=== PATIENT | male | born 1965 | race Caucasian/White ===

== ENCOUNTER 2017-07-06 14:29 | Emergency (ER) | payer OTHER ==
[~2017-07-06] VITALS: Ht 167.6 cm; Wt 122.5 kg
[~2017-07-06 14:29] MED LIST: FLOMAX0.4 MG PO; PANTOPRAZOLE SO40 MG PO; ULTRAM50 MG PO; ZOFRAN ODT4 MG
[2017-07-06 16:00] LABS: KETONES,URINE NEGATIVE (NEGATIVE); LEUKOCYTE ESTERASE ,URINE NEGATIVE (NEGATIVE); NITRITE,URINE NEGATIVE (NEGATIVE); URINE UROBILINOGEN 0.2 mg/dL (0.2 - 1)
[2017-07-06 16:01] LABS: BILIRUBIN,URINE 1+ (NEGATIVE); CLARITY,URINE SL CLOUDY (CLEAR); COLOR,URINE YELLOW (YELLOW); PROTEIN,URINE DIPSTICK TRACE (NEGATIVE)
[2017-07-06 16:19] LABS: BACTERIA,URINE MODERATE /HPF; EPITHELIAL CELLS,URINE RARE /LPF
[2017-07-06] MEDS ORDERED: SODIUM CHLORIDE 0.9% 1000ML 1,000 ML IV SCH (16:45)
[2017-07-06] MEDS ORDERED: FENTANYL CITRATE/PF 100MCG/2 ML INJ IV ONE ×2 (16:45→19:30)
--- NOTE | 2017-07-06 17:41 | Diagnostic Imaging Report ---
PROCEDURE: CT ABDOMEN AND PELVIS WITHOUT CONTRAST TECHNIQUE: The abdomen and pelvis were scanned utilizing a multidetector helical scanner from the diaphragm to the lesser trochanter after the oral administration of water (Gastroview/Readi-Cat 2). No IV contrast was administered per renal stone protocol. Coronal and sagittal multiplanar reformations were obtained. COMPARISON: Patients [facility], CT, CT ABDOMEN/PELVIS WO, 03/13/2017, 7:53. INDICATIONS: RIGHT FLANK PAIN FINDINGS: ABSENCE OF INTRAVENOUS CONTRAST DECREASES SENSITIVITY FOR DETECTION OF FOCAL LESIONS AND VASCULAR PATHOLOGY. LOWER THORAX: Unremarkable. HEPATOBILIARY: Diffuse hepatic steatosis. No focal hepatic lesions. No biliary ductal dilation. Gallbladder is unremarkable. SPLEEN: No splenomegaly. PANCREAS: No focal masses or ductal dilatation. ADRENALS: No adrenal nodules. KIDNEYS/URETERS: 3 mm nonobstructing calculus in the superior to mid aspect of the right kidney (series 3, image 70). Punctate nonobstructing calculus at the right UVJ (series 3, image 155 and sagittal image 58), resulting in minimal hydronephrosis and minimal perinephric stranding. No other renal or ureteral calculi. No contour abnormalities. PELVIC ORGANS/BLADDER: Bladder is decompressed. No focal lesions. No bladder calculi. PERITONEUM / RETROPERITONEUM: No free air or fluid. LYMPH NODES: No lymphadenopathy. VESSELS: Unremarkable. GI TRACT: No bowel dilation or evidence of obstruction. Appendix is well identified and normal in caliber. BONES AND SOFT TISSUES: No acute bony abnormalities. Degenerative disc changes in the lumbosacral spine, worse at L4-L5. Stable small fat containing umbilical hernia. IMPRESSION: 1. punctate nonobstructing calculus at the right UVJ, resulting in minimal hydronephrosis and minimal perinephric stranding. 2. 3 mm nonobstructing calculus in the superior to mid aspect of the right kidney. 3. No other renal or ureteral calculi. No left hydronephrosis or obstruction. 4. Diffuse hepatic steatosis. Mayur Horne M.D. Dictated by: Mayur Horne M.D. on 07/06/2017 at 17:50 Electronically approved by: Mayur Horne M.D. on 07/06/2017 at 17:50
[2017-07-06 18:15] LABS: BASOPHILS # (AUTO) 0.1 (0.0-0.1); BASOPHILS % 0.3 % (0.0-1.0); EOSINOPHILS # (AUTO) 0.1 (0.0-0.4); EOSINOPHILS % 0.5 % (0.0-6.0); HEMATOCRIT 46.4 % (38.2-49.6); HEMOGLOBIN 15.4 g/dL (14.0-18.0); LYMPHOCYTES # (AUTO) 1.9 (1.0-3.2); MEAN CORPUSCULAR HEMOGLOBIN 30.9 pg (28-32); MEAN CORPUSCULAR HGB CONC 33.2 g/dL (31-35); MEAN CORPUSCULAR VOLUME 93.2 fL (81-99); MONOCYTES # (AUTO) 1.2 (0.2-0.8); MONOCYTES % 6.4 % (4.4-11.3); NEUTROPHILS # (AUTO) 15.5 (2.1-6.9); NEUTROPHILS % 82.3 % (38.7-80.0); PLATELET COUNT 348 x10e3/uL (140-360); RED BLOOD COUNT 4.98 x10e6/uL (4.3-5.7); RED CELL DISTRIBUTION WIDTH 13.4 % (11.7-14.4)
[2017-07-06 18:33] LABS: ALBUMIN 3.6 g/dL (3.5-5.0); ALBUMIN/GLOBULIN RATIO 0.9 (0.8-2.0); ANION GAP 13.4 mmol/L (8-16); CALCIUM 9.9 mg/dL (8.4-10.2); CREATININE, SERUM 1.58 mg/dL (0.72-1.25); POTASSIUM 4.4 mmol/L (3.5-5.1)
[2017-07-06] MEDS ORDERED: CEFTRIAXONE SOD 1 GM VIAL IM ONE (19:30)
[2017-07-06 20:28] VITALS: BP 165/101
== END 2017-07-06 20:34 | disposition home or self-care (01) ==
LOC: ER 14:29
DX: R10.9 Unspecified abdominal pain (principal); R31.9 Hematuria, unspecified; N39.0 Urinary tract infection, site not specified; N20.0 Calculus of kidney; N20.1 Calculus of ureter
CPT/HCPCS: 36415; 74176; 80053; 81001; 85025; 99284; J0696; J7030

== ENCOUNTER 2017-07-30 05:55 | Emergency (ER) | payer OTHER ==
[~2017-07-30] VITALS: Ht 167.6 cm; Wt 122.5 kg
[2017-07-30] MEDS ORDERED: ASPIRIN 81 MG CHEW TAB PO ONE (06:00)
[2017-07-30] MEDS ORDERED: ENOXAPARIN SODIUM INJ 100 MG/ML SYR SC STA (06:02)
[2017-07-30] MEDS ORDERED: DILTIAZEM HCL IV 5MG/ML 25 ML VIAL ONE (06:10)
[2017-07-30] MEDS: DILTIAZEM HCL 100 ML IV PRN ×3 (06:12→09:00)
[2017-07-30] MEDS ORDERED: SODIUM CHLORIDE 0.9% 1000ML 1,000 ML IV ONE (06:15)
[2017-07-30] MEDS ORDERED: DILTIAZEM HCL 5 MG/ML 5 ML VIAL IV ONE (06:15)
[2017-07-30] MEDS ORDERED: ENOXAPARIN SODIUM INJ 100 MG/ML SYR SC SCH ×2 (06:15→18:15)
[2017-07-30 06:20] LABS: BASOPHILS # (AUTO) 0.1 (0.0-0.1); BASOPHILS % 0.4 % (0.0-1.0); EOSINOPHILS # (AUTO) 0.2 (0.0-0.4); EOSINOPHILS % 1.2 % (0.0-6.0); HEMATOCRIT 48.3 % (38.2-49.6); HEMOGLOBIN 15.5 g/dL (14.0-18.0); LYMPHOCYTES # (AUTO) 5.4 (1.0-3.2); LYMPHOCYTES % 36.2 % (18.0-39.1); MEAN CORPUSCULAR HEMOGLOBIN 30.9 pg (28-32); MEAN CORPUSCULAR HGB CONC 32.1 g/dL (31-35); MEAN CORPUSCULAR VOLUME 96.2 fL (81-99); MONOCYTES # (AUTO) 1.1 (0.2-0.8); NEUTROPHILS # (AUTO) 8.2 (2.1-6.9); NEUTROPHILS % 54.8 % (38.7-80.0); PLATELET COUNT 300 x10e3/uL (140-360); RED BLOOD COUNT 5.02 x10e6/uL (4.3-5.7); RED CELL DISTRIBUTION WIDTH 13.7 % (11.7-14.4)
[2017-07-30] MEDS ORDERED: IBUPROFEN 600 MG TAB PO STA (06:29)
[2017-07-30 06:36] LABS: ALBUMIN 3.7 g/dL (3.5-5.0); ANION GAP 15.6 mmol/L (8-16); CALCIUM 9.4 mg/dL (8.4-10.2); CREATININE, SERUM 1.48 mg/dL (0.72-1.25); POTASSIUM 3.6 mmol/L (3.5-5.1)
[2017-07-30 06:37] LABS: INR 0.91; PARTIAL THROMBOPLASTIN TIME 26.1 seconds (23.8-35.5); PROTHROMBIN TIME 12.7 seconds (11.9-14.5)
[2017-07-30 06:42] LABS: CREATINE KINASE MB 1.5 ng/mL (0.00-5.00); TROPONIN I 0.003 ng/mL (0-0.300)
--- NOTE | 2017-07-30 06:53 | Diagnostic Imaging Report ---
EXAM: CHEST SINGLE (PORTABLE), AP 1 view DATE: 07/30/2017 5:59 AM Time stamp on exam: 0627 hours INDICATION: Shortness of breath COMPARISON: AP view of the chest February 06, 2017 FINDINGS: LINES/TUBES: None LUNGS: No consolidations or edema. PLEURA: No effusions or pneumothorax. HEART AND MEDIASTINUM: Normal size and contour. BONES AND SOFT TISSUES: No acute findings. IMPRESSION: No acute thoracic abnormality. Signed by: Dr. Kiera Ramirez M.D. on 07/30/2017 6:49 AM
--- NOTE | 2017-07-30 08:54 | Diagnostic Imaging Report ---
EXAM: CTA Chest WITH contrast / Pulmonary Embolus Study INDICATION: COMPARISON: None. TECHNIQUE: Angiogram of the chest was obtained using a multidetector helical scanner after administration of IV contrast. Coronal and sagittal reformations were obtained. Reformatted axial MIP images were obtained and reviewed. Pulmonary embolus protocol. IV CONTRAST: 100 mL Isovue-370 COMPLICATIONS: None RADIATION DOSE: Total DLP: 567 mGy*cm Estimated effective dose: (DLP x 0.015 x size factor) mSv CTDIvol has been reviewed. It is below the limits set by the Radiation Protocol Committee (RPC). FINDINGS: Lines and Tubes: None. Lower Neck: Within limitations of spray artifact, thyroid grossly unremarkable. Heart and Great Vessels: The aorta and main pulmonary artery measure 30 and 27 mm. respectively. The cardiothoracic radio measures 13/28. RV/LV ratio over 1 (51/34). Extensive pulmonary emboli in the bilateral upper and lobe pulmonary arteries beginning at the bifurcation of the right and main pulmonary arteries involving lobar, segmental, and subsegmental pulmonary arteries. Clot burden is large. Lymph Nodes: No suspicious adenopathy. Lungs: Atelectasis present in the lung bases. No pneumothorax or pleural effusion. No focal consolidation identified. Trachea and central bronchi are unremarkable. Upper abdomen: Decreased attenuation the liver suggesting steatosis. Bones and Soft Tissues: No acute findings. IMPRESSION: 1. Bilateral upper and lower lobe pulmonary emboli involving distal main pulmonary arteries, lobar, segmental, and subsegmental pulmonary arteries in all five lobes. Clot burden is large with evidence of right heart strain. Case discussed with Dr. Drake at 8:45am. Signed by: Dr. James Fairbanks MD on 07/30/2017 8:50 AM
[2017-07-30] MEDS ORDERED: HEPARIN 25,000U/0.45% NS 250ML 1,500 UNIT in SODIUM CHLORIDE 0.9% 250ML 0 ML IV SCH (09:30)
[2017-07-30] MEDS ORDERED: IOPAMIDOL 370 MG/ML 200 ML INFUS..BTL INJ ONE (13:27)
[2017-07-30] MEDS ORDERED: SODIUM CHLORIDE 0.9% 50ML 50 ML ONE (13:27)
[2017-07-30 13:49] VITALS: BP 112/70
[2017-07-30] MEDS ORDERED: SODIUM CHLORIDE 0.9% 1000ML 1,000 ML IV SCH (14:00)
[2017-07-30 14:11] LABS: CHOL/HDL RATIO 3.2 (3.9-4.7)
--- NOTE | 2017-07-30 14:40 | Consultation ---
DATE OF CONSULTATION: July 30, 2017 PULMONARY CONSULTATION This is a patient of Dr. Palmer Sahu and Dr. Monique, admitted with chest pain on and off, lasting 30 seconds, and soreness intermittently of the left leg. This morning, he collapsed going to the bathroom. His legs gave way. He did not lose consciousness. HE IS ALLERGIC TO PEANUTS AND CHOCOLATE. He takes no regular medications. He has a history of pulmonary embolus in the past when he was at [facility] several years ago for pneumonia. He has a history of renal colic in the past. He has had tendon repair and back surgery at L4-5 twice. ACL repair, left. 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 He has a history of severe obstructive sleep apnea but is awaiting his machine. FAMILY HISTORY: He is adopted. PHYSICAL EXAMINATION GENERAL: Well-developed, burly, white male in no acute distress, on nonrebreather mask. VITALS: Pulse 154 on Cardizem, respirations 28, blood pressure 113/99. The O2 saturation is 100%. NECK: Bull neck. LUNGS: Diminished breath sounds, a few rhonchi. HEART: Irregular rhythm. ABDOMEN: Obese. EXTREMITIES: Swelling of the left lower extremity. IMPRESSION: Submassive pulmonary embolus. No evidence of shock. If shock develops, he would be a candidate for tPA thrombolytic therapy. At this point, would continue Lovenox or heparin but not both. He may require long-term anticoagulation. Hematologic opinion in view of the recurrence of his pulmonary emboli. Echocardiogram is requested. Thank you for this kind referral. Job#: [id number]
== END 2017-07-30 14:23 | disposition other institution (70) ==
LOC: ER 05:55
DX: I26.99 Other pulmonary embolism without acute cor pulmonale (principal); R07.89 Other chest pain; R06.02 Shortness of breath; Z86.718 Personal history of other venous thrombosis and embolism; G47.30 Sleep apnea, unspecified; R00.0 Tachycardia, unspecified; Z91.010 Allergy to peanuts; Z91.018 Allergy to other foods; Z86.711 Personal history of pulmonary embolism
CPT/HCPCS: 36415; 71010; 71260; 80053; 80061; 82550; 82553; 83880; 84484; 85025; 85379; 85610; 85730; 93005; 96360; 96365; 99285; J1650; J7030; Q9967

== ENCOUNTER 2017-08-04 18:54 | Observation (INO) | payer OTHER ==
[~2017-08-04] VITALS: Ht 167.6 cm; Wt 111.6 kg
[2017-08-04] MEDS ORDERED: ASPIRIN 81 MG CHEW TAB PO ONE (19:30)
--- NOTE | 2017-08-04 19:49 | Diagnostic Imaging Report ---
Portable chest x-ray CPT code 17004 INDICATION: Chest tightness and pain; recent diagnosis of pulmonary emboli COMPARISON: CTA chest and chest x-ray 07/30/2017 FINDINGS: Frontal view of the chest obtained at 1925 hours. The image is mildly motion degraded. The cardiac silhouette is stable in morphology. The pulmonary vascular marking are normal. The lungs demonstrate increasing infrahilar airspace opacity in the right middle lobe. The left lung is clear. The costophrenic angles are sharp. There is no pneumothorax. The osseous structures are intact and normal in morphology. IMPRESSION: New right infrahilar airspace opacity could represent developing pulmonary infarct given the large burden of emboli on CTA. The differential includes atelectasis and pneumonia. Recommend correlation with PA and lateral chest x-ray when clinically feasible. Signed by: Dr. Jaki Day MD on 08/04/2017 7:45 PM
[2017-08-04 20:02] LABS: BASOPHILS # (AUTO) 0.1 (0.0-0.1); BASOPHILS % 0.4 % (0.0-1.0); EOSINOPHILS # (AUTO) 0.2 (0.0-0.4); EOSINOPHILS % 1.8 % (0.0-6.0); HEMATOCRIT 46.7 % (38.2-49.6); HEMOGLOBIN 15.4 g/dL (14.0-18.0); LYMPHOCYTES # (AUTO) 2.2 (1.0-3.2); LYMPHOCYTES % 19.4 % (18.0-39.1); MEAN CORPUSCULAR HEMOGLOBIN 30.7 pg (28-32); MONOCYTES # (AUTO) 1.1 (0.2-0.8); MONOCYTES % 9.6 % (4.4-11.3); NEUTROPHILS # (AUTO) 7.9 (2.1-6.9); NEUTROPHILS % 68.4 % (38.7-80.0); PLATELET COUNT 260 x10e3/uL (140-360); RED BLOOD COUNT 5.02 x10e6/uL (4.3-5.7); RED CELL DISTRIBUTION WIDTH 13.6 % (11.7-14.4)
[2017-08-04 20:06] LABS: BILIRUBIN,URINE NEGATIVE (NEGATIVE); CLARITY,URINE CLEAR (CLEAR); COLOR,URINE YELLOW (YELLOW); KETONES,URINE NEGATIVE (NEGATIVE); LEUKOCYTE ESTERASE ,URINE NEGATIVE (NEGATIVE); NITRITE,URINE NEGATIVE (NEGATIVE); PROTEIN,URINE DIPSTICK NEGATIVE (NEGATIVE); URINE UROBILINOGEN 0.2 mg/dL (0.2 - 1)
[2017-08-04 20:08] LABS: INR 1.03
[2017-08-04 20:09] LABS: PARTIAL THROMBOPLASTIN TIME 30.1 seconds (23.8-35.5)
[2017-08-04 20:14] LABS: EPITHELIAL CELLS,URINE RARE /LPF; MUCUS,URINE FEW (RARE); RBC,URINE 0-5 /HPF (0-5); WBC,URINE (MAN) 0-5 /HPF (0-5)
[2017-08-04 20:21] LABS: ALBUMIN 3.7 g/dL (3.5-5.0); ALBUMIN/GLOBULIN RATIO 0.7 (0.8-2.0); ANION GAP 15.8 mmol/L (8-16); CALCIUM 9.9 mg/dL (8.4-10.2); CREATININE, SERUM 1.4 mg/dL (0.72-1.25); POTASSIUM 5.8 mmol/L (3.5-5.1)
[2017-08-04 20:29] LABS: CREATINE KINASE MB 3.6 ng/mL (0.00-5.00)
--- NOTE | 2017-08-04 21:19 | Diagnostic Imaging Report ---
EXAMINATION: Head CT without contrast. HISTORY:Syncope, dizziness. COMPARISON:CT brain from 05/10/2016. TECHNIQUE: Multidetector axial images were obtained from the foramen magnum to the vertex without contrast. The images were reconstructed using brain and bone algorithms. Thin section brain images were reformatted into coronal and sagittal planes. Intravenous contrast: None IMAGE QUALITY: Acceptable. FINDINGS: Skull/scalp: Unchanged nonspecific focal right occipital thickened soft tissue may represent scar. No acute abnormality. Parenchyma: No abnormal density. No acute hemorrhage, mass or acute major vascular territorial infarct. Arteries: No density suggestive of thrombosis. Dural sinuses: No abnormal density suggestive of thrombosis. Ventricles: No hydrocephalus or displacement. Extra-axial spaces: No abnormal density. Brain volume: Normal for age. Craniocervical junction: No mass, Chiari malformation, or basilar invagination. Sella: No mass. Paranasal/mastoid sinuses: Imaged portions unremarkable. IMPRESSION: No intracranial abnormality. Signed by: Dr. Jennifer Gracia M.D. on 08/04/2017 9:16 PM
--- NOTE | 2017-08-04 21:52 | Diagnostic Imaging Report ---
EXAMINATION: CHEST 2 VIEWS INDICATION: Chest pain, history of PE COMPARISON: 08/04/2017 FINDINGS: TUBES and LINES: None. LUNGS: Lungs are well inflated. Lungs are clear. There is no evidence of pneumonia or pulmonary edema. PLEURA: No pleural effusion or pneumothorax. HEART AND MEDIASTINUM: The cardiomediastinal silhouette is unremarkable. BONES AND SOFT TISSUES: No acute osseous lesion. Soft tissues are unremarkable. UPPER ABDOMEN: No free air under the diaphragm. IMPRESSION: No acute thoracic abnormality. Signed by: Dr. Enio Mo M.D. on 08/04/2017 9:48 PM
[2017-08-04 22:29] LABS: ALANINE AMINOTRANSFERASE 66 IU/L (0-55); ALBUMIN 3.6 g/dL (3.5-5.0); ALBUMIN/GLOBULIN RATIO 0.9 (0.8-2.0); ALKALINE PHOSPHATASE 83 IU/L (40-150); ANION GAP 14.9 mmol/L (8-16); BLOOD UREA NITROGEN 24 mg/dL (7-26); BUN/CREATININE RATIO 17 (6-25); CALCIUM 9.9 mg/dL (8.4-10.2); CARBON DIOXIDE 23 mmol/L (22-29); CHLORIDE 105 mmol/L (98-107); CREATININE, SERUM 1.43 mg/dL (0.72-1.25); EST GLOMERULAR FILTRATION RATE 52 ML/MIN (60-); GLUCOSE 119 mg/dL (74-118); POTASSIUM 3.9 mmol/L (3.5-5.1); SODIUM 139 mmol/L (136-145)
[2017-08-04] MEDS ORDERED: ONDANSETRON HCL INJ 2 MG/ML VIAL IV PRN (23:30)
[2017-08-04] MEDS ORDERED: ELIQUIS PO (23:59)
[2017-08-05] VITALS (9 sets, daily range): BP systolic 116–136; BP diastolic 60–81
[2017-08-05] MEDS: FAMOTIDINE 20 MG/2 ML VIAL IV SCH ×3 (03:55→20:19)
[2017-08-05 03:56] LABS: BASOPHILS % 0.3 % (0.0-1.0); EOSINOPHILS # (AUTO) 0.2 (0.0-0.4); EOSINOPHILS % 1.6 % (0.0-6.0); HEMATOCRIT 43.8 % (38.2-49.6); HEMOGLOBIN 14.4 g/dL (14.0-18.0); LYMPHOCYTES # (AUTO) 2.3 (1.0-3.2); LYMPHOCYTES % 19.2 % (18.0-39.1); MEAN CORPUSCULAR HEMOGLOBIN 30.7 pg (28-32); MEAN CORPUSCULAR HGB CONC 32.9 g/dL (31-35); MEAN CORPUSCULAR VOLUME 93.4 fL (81-99); MONOCYTES # (AUTO) 0.8 (0.2-0.8); NEUTROPHILS # (AUTO) 8.3 (2.1-6.9); NEUTROPHILS % 71.4 % (38.7-80.0); PLATELET COUNT 277 x10e3/uL (140-360); RED BLOOD COUNT 4.69 x10e6/uL (4.3-5.7); RED CELL DISTRIBUTION WIDTH 13.5 % (11.7-14.4)
[2017-08-05 04:16] LABS: ALBUMIN 3.4 g/dL (3.5-5.0); ALBUMIN/GLOBULIN RATIO 0.9 (0.8-2.0); ANION GAP 13.9 mmol/L (8-16); CALCIUM 9.7 mg/dL (8.4-10.2); CHOL/HDL RATIO 4.2 (3.9-4.7); CREATININE, SERUM 1.41 mg/dL (0.72-1.25); POTASSIUM 3.9 mmol/L (3.5-5.1)
[2017-08-05 04:23] LABS: CREATINE KINASE MB 2.8 ng/mL (0.00-5.00)
[2017-08-05] MEDS: APIXABAN 5 MG TABLET PO SCH ×2 (09:00→17:30)
[2017-08-05 15:53] LABS: CREATINE KINASE MB 4.6 ng/mL (0.00-5.00)
[2017-08-06] VITALS: BP 115/57
[2017-08-06 01:14] VITALS: BP 119/81
[2017-08-06 04:00] VITALS: BP 120/61
[2017-08-06 08:16] VITALS: BP 95/50
[2017-08-06] MEDS: APIXABAN 5 MG TABLET PO SCH (08:23)
[2017-08-06] MEDS: FAMOTIDINE 20 MG/2 ML VIAL IV SCH (08:23)
[2017-08-06 09:36] VITALS: BP 95/50
== END 2017-08-06 10:32 | disposition home or self-care (01) ==
LOC: ER 18:54 → ERHOLD 23:33 → MED/SURG 08-05 00:51
PROVIDERS: ADMIT Internal Medicine; ATTEND Internal Medicine
DX: R07.89 Other chest pain (principal); I26.99 Other pulmonary embolism without acute cor pulmonale; G47.33 Obstructive sleep apnea (adult) (pediatric); I34.0 Nonrheumatic mitral (valve) insufficiency; I07.1 Rheumatic tricuspid insufficiency; N18.3 Chronic kidney disease, stage 3 (moderate); Z79.02 Long term (current) use of antithrombotics/antiplatelets
CPT/HCPCS: 36415 ×2; 70450; 71045; 71046; 80053 ×2; 80061; 81001; 82550 ×2; 82553 ×2; 83880; 84484 ×2; 85025 ×2; 85610; 85730; 87086; 93005; 93306 ×2; 99284; G0378 ×3

== ENCOUNTER → 2017-09-21 | Outpatient (CLI) | payer OTHER ==
[~2017-09-21] MED LIST changes: +ELIQUIS PO
--- NOTE | 2017-09-21 19:05 | Diagnostic Imaging Report ---
Ventilation/perfusion lung scan Clinical Information: History of pulmonary embolism 2 months ago with heavy clot burden Comparison: Chest radiograph 08/04/2017; CT chest PE protocol 07/30/2017 Discussion: Xenon-133 gas 9 mCi was administered via inhalation. Dynamic images of the lungs in the posterior projection were obtained through single breath, equilibrium, and washout phases. Distribution of tracer activity appears physiologic throughout the lungs.. There are no segmental ventilatory defects. Washout of tracer is mildly delayed with no evidence of air trapping. Perfusion images of the lungs were obtained in multiple projections following intravenous administration of approximately 6.6 mCi of Tc-99m MAA. Distribution of tracer appears physiologic throughout the lungs. The contours of the lungs are well demarcated. There are no segmental perfusion defects of any size. The cardiomediastinal silhouette is unremarkable. Impression: 1. Scan findings represent a VERY LOW probability for acute pulmonary embolic disease based on the PIOPED II criteria. 2. No pulmonary infarcts related to prior PE in 07/2017. Signed by: Dr. Susie Bedolla M.D. on 09/21/2017 7:02 PM
== END ==
LOC: NM 13:23
PROVIDERS: ATTEND Internal Medicine Pulmonary Disease
DX: I26.99 Other pulmonary embolism without acute cor pulmonale (principal); G47.33 Obstructive sleep apnea (adult) (pediatric)
CPT/HCPCS: 78582; A9540; A9558

== ENCOUNTER 2017-10-05 18:52 | Emergency (ER) | payer OTHER ==
[~2017-10-05] VITALS: Ht 167.6 cm; Wt 111.6 kg
--- OUTSIDE RECORDS SUMMARY | 2017-10-05 18:55 | XMS REPORT ---
Author Author [facility] Address Unknown Phone Unavailable Care Team Providers Care Substation Superintendent Name Role Phone JOCELYNE DIXON Unavailable Unavailable ROXIE GAO Unavailable Unavailable ENOCH DRAKE Unavailable Unavailable YUKO DEL ANGEL Unavailable Unavailable Problems This patient has no known problems. Allergies, Adverse Reactions, Alerts This patient has no known allergies or adverse reactions. Medications This patient has no known medications. Results Test Description Test Time Test Comments Text Results Atomic Results Result Comments VQ LUNG SCAN VENT PERFUSION [place] [address] Patient Name: ALANNA LAKHANI MR #: [id number] : 1965 Age/Sex: 52/M Req #: [id number] Adm Physician: Ordered by: JOCELYNE DIXON MD Report #: [id number] Location: MD Room/Bed: Procedure: [id number] NM/VQ LUNG SCAN VENT PERFUSION Exam Date: Exam Time: REPORT STATUS: Signed Ventilation/ perfusion lung scan Clinical Information: History of pulmonary embolism 2 months ago with heavy clot burden Comparison: Chest radiograph 08/04/2017 ; CT chest PE protocol 07/30/2017 Discussion: Xenon-133 gas 9 mCi was administered via inhalation. Dynamic images of the lungs in the posterior projection were obtained through single breath, equilibrium, and washout phases. Distribution of tracer activity appears physiologic throughout the lungs.. There are no segmental ventilatory defects. Washout of tracer is mildly delayed with no evidence of air trapping. Perfusion images of the lungs were obtained in multiple projections following intravenous administration of approximately 6.6 mCi of Tc-99m MAA. Distribution of tracer appears physiologic throughout the lungs. The contours of the lungs are well demarcated. There are no segmental perfusion defects of any size. The cardiomediastinal silhouette is unremarkable. Impression: 1. Scan findings represent a VERY LOW probability for acute pulmonary embolic disease based on the PIOPED II criteria. 2. No pulmonary infarcts related to prior PE in 07/2017. Signed by: Dr. Jeanette Bedolla M.D. on 09/21/2017 7:02 PM Dictated By: JEANETTE BEDOLLA MD 01 COPY TO: JOCELYNE DIXON MD CHEST 2 VIEWS [place] [address] Patient Name: ALANNA LAKHANI MR #: [id number] : 1965 Age/Sex: 52/M Req #: [id number] Adm Physician: Ordered by: ROXIE GAO MD Report #: [id number] Location: ER Room/Bed: Procedure: [id number] DX/CHEST 2 VIEWS Exam Date: 08/04/17 Exam Time: 2039 REPORT STATUS: Signed EXAMINATION: CHEST 2 VIEWS INDICATION: Chest pain, history of PE COMPARISON: 08/04/2017 FINDINGS: TUBES and LINES: None. LUNGS: Lungs are well inflated. Lungs are clear. There is no evidence of pneumonia or pulmonary edema. PLEURA: No pleural effusion or pneumothorax. HEART AND MEDIASTINUM: The cardiomediastinal silhouette is unremarkable. BONES AND SOFT TISSUES: No acute osseous lesion. Soft tissues are unremarkable. UPPER ABDOMEN: No free air under the diaphragm. IMPRESSION: No acute thoracic abnormality. Signed by: Dr. Enio Mo M.D. on 2017 9:48 PM Dictated By: ENIO MEDINA MD 47 Transcribed By: ALEYDA on 2147 COPY TO: ROXIE GAO MD CT BRAIN WO [place] [address] Patient Name: ALANNA LAKHANI MR #: [id number] : 1965 Age/Sex: 52/M Req #: [id number] Adm Physician: Ordered by: ROXIE GAO MD Report #: [id number] Location: ER Room/Bed: Procedure: [id number] CT/CT BRAIN WO Exam Date: 08/04/17 Exam Time: 2044 REPORT STATUS: Signed EXAMINATION: Head CT without contrast. HISTORY:Syncope, dizziness. COMPARISON:CT brain from 05/10/2016. TECHNIQUE: Multidetector axial images were obtained from the foramen magnum to the vertex without contrast. The images were reconstructed using brain and bone algorithms. Thin section brain images were reformatted into coronal and sagittal planes. Intravenous contrast: None IMAGE QUALITY: Acceptable. FINDINGS: Skull/scalp: Unchanged nonspecific focal right occipital thickened soft tissue may represent scar. No acute abnormality. Parenchyma: No abnormal density. No acute hemorrhage, mass or acute major vascular territorial infarct. Arteries: No density suggestive of thrombosis. Dural sinuses: No abnormal density suggestive of thrombosis. Ventricles: No hydrocephalus or displacement. Extra- axial spaces: No abnormal density. Brain volume: Normal for age. Craniocervical junction: No mass, Chiari malformation, or basilar invagination. Sella: No mass. Paranasal/mastoid sinuses: Imaged portions unremarkable. IMPRESSION: No intracranial abnormality. Signed by: Dr. Jennifer Gracia M.D. on 08/04/2017 9:16 PM Dictated By: JENNIFER GRACIA MD 15 Transcribed By: ALEYDA on 08/04/172115 COPY TO: ROXIE GAO MD CHEST SINGLE (NOT PORTABLE) [place] [address] Patient Name: ALANNA LAKHANI MR #: [id number] : 1965 Age/Sex: 52/M Req #: [id number] Adm Physician: Ordered by: ROXIE GAO MD Report #: [id number] Location: ER Room/Bed: Procedure: [id number] DX/CHEST SINGLE (NOT PORTABLE) Exam Date: 08/04/17 Exam Time: 1919 REPORT STATUS: Signed Portable chest x-ray CPT code 43253 INDICATION: Chest tightness and pain; recent diagnosis of pulmonary emboli COMPARISON: CTA chest and chest x-ray 07/30/2017 FINDINGS: Frontal view of the chest obtained at 1925 hours. The image is mildly motion degraded. The cardiac silhouette is stable in morphology. The pulmonary vascular marking are normal. The lungs demonstrate increasing infrahilar airspace opacity in the right middle lobe. The left lung is clear. The costophrenic angles are sharp. There is no pneumothorax. The osseous structures are intact and normal in morphology. IMPRESSION: New right infrahilar airspace opacity could represent developing pulmonary infarct given the large burden of emboli on CTA. The differential includes atelectasis and pneumonia. Recommend correlation with PA and lateral chest x-ray when clinically feasible. Signed by: Dr. Eliecer Metz MD on 08/04/2017 7:45 PM Dictated By: ELIECER METZ MD 44 COPY TO: ROXIE GAO MD CT CHEST W [place] [address] Patient Name: ALANNA LAKHANI MR #: [id number] : 1965 Age/Sex: 52/M Req #: [id number] Adm Physician: Ordered by: JENA YOO MD Report #: [id number] Location: ER Room/Bed: Procedure: [id number] CT/CT CHEST W Exam Date: 07/30/17 Exam Time: 0815 REPORT STATUS: Signed EXAM: CTA Chest WITH contrast / Pulmonary Embolus Study INDICATION: COMPARISON: None. TECHNIQUE: Angiogram of the chest was obtained using a multidetector helical scanner after administration of IV contrast. Coronal and sagittal reformations were obtained. Reformatted axial MIP images were obtained and reviewed. Pulmonary embolus protocol. IV CONTRAST: 100 mL Isovue-370 COMPLICATIONS: None RADIATION DOSE: Total DLP: 567 mGy*cm Estimated effective dose: (DLP x 0.015 x size factor) mSv CTDIvol has been reviewed. It is below the limits set by the Radiation Protocol Committee (RPC). FINDINGS: Lines and Tubes: None. Lower Neck: Within limitations of spray artifact, thyroid grossly unremarkable. Heart and Great Vessels: The aorta and main pulmonary artery measure 30 and 27 mm. respectively. The cardiothoracic radio measures 13/28. RV/LV ratio over 1 ( 51/34). Extensive pulmonary emboli in the bilateral upper and lobe pulmonary arteries beginning at the bifurcation of the right and main pulmonary arteries involving lobar, segmental, and subsegmental pulmonary arteries. Clot burden is large. Lymph Nodes: No suspicious adenopathy. Lungs: Atelectasis present in the lung bases. No pneumothorax or pleural effusion. No focal consolidation identified. Trachea and central bronchi are unremarkable. Upper abdomen: Decreased attenuation the liver suggesting steatosis. Bones and Soft Tissues: No acute findings. IMPRESSION: 1. Bilateral upper and lower lobe pulmonary emboli involving distal main pulmonary arteries, lobar, segmental, and subsegmental pulmonary arteries in all five lobes. Clot burden is large with evidence of right heart strain. Case discussed with Dr. Drake at 8:45am. Signed by: Dr. Belkis Fairbanks MD on 8:50 AM Dictated By: BELKIS FAIRBANKS MD 0850 Transcribed By: ALEYDA on 07/30/17 0850 COPY TO: JENA YOO MD CHEST SINGLE (PORTABLE) [place] [address] Patient Name: ALANNA LAKHANI MR #: [id number] : 1965 Age/Sex: 52/M Req #: [id number] Adm Physician: Ordered by: JENA YOO MD Report #: [id number] Location: ER Room/Bed: ___ Procedure: [id number] DX/CHEST SINGLE (PORTABLE) Exam Date: 07/30/17 Exam Time: 0610 REPORT STATUS: Signed EXAM: CHEST SINGLE (PORTABLE), AP 1 view DATE: 07/30/2017 5:59 AM Time stamp on exam : 0627 hours INDICATION: Shortness of breath COMPARISON: AP view of the chest February 06, 2017 FINDINGS: LINES/TUBES: None LUNGS: No consolidations or edema. PLEURA: No effusions or pneumothorax. HEART AND MEDIASTINUM: Normal size and contour. BONES AND SOFT TISSUES: No acute findings. IMPRESSION: No acute thoracic abnormality. Signed by: Dr. Camilo Ramirez M.D. on 07/30/2017 6:49 AM Dictated By: CAMILO RAMIREZ MD 8 Transcribed By: ALEYDA on 07/30/17648 COPY TO: JENA YOO MD CT ABDOMEN/PELVIS WO [place] [address] Patient Name: ALANNA LAKHANI MR #: [id number] : 1965 Age/Sex: 52/M Req #: [id number] Adm Physician: Ordered by: DOROTA BYRD WHEEL CUTTER Report #: [id number] Location: ER Room/Bed: Procedure: [id number] CT/CT ABDOMEN/PELVIS WO Exam Date: 07/06/17 Exam Time: 1650 REPORT STATUS: Signed PROCEDURE: CT ABDOMEN AND PELVIS WITHOUT CONTRAST TECHNIQUE: The abdomen and pelvis were scanned utilizing a multidetector helical scanner from the diaphragm to the lesser trochanter after the oral administration of water (Gastroview/Readi-Cat 2). No IV contrast was administered per renal stone protocol. Coronal and sagittal multiplanar reformations were obtained. COMPARISON: [facility], CT, CT ABDOMEN/PELVIS WO, 03/13/2017, 7:53. INDICATIONS: RIGHT FLANK PAIN FINDINGS: ABSENCE OF INTRAVENOUS CONTRAST DECREASES SENSITIVITY FOR DETECTION OF FOCAL LESIONS AND VASCULAR PATHOLOGY. LOWER THORAX: Unremarkable. HEPATOBILIARY: Diffuse hepatic steatosis. No focal hepatic lesions. No biliary ductal dilation. Gallbladder is unremarkable. SPLEEN: No splenomegaly. PANCREAS: No focal masses or ductal dilatation. ADRENALS: No adrenal nodules. KIDNEYS/URETERS: 3 mm nonobstructing calculus in the superior to mid aspect of the right kidney ( series 3, image 70). Punctate nonobstructing calculus at the right UVJ ( series 3, image 155 and sagittal image 58), resulting in minimal hydronephrosis and minimal perinephric stranding. No other renal or ureteral calculi. No contour abnormalities. PELVIC ORGANS/BLADDER: Bladder is decompressed. No focal lesions. No bladder calculi. PERITONEUM / RETROPERITONEUM: No free air or fluid. LYMPH NODES: No lymphadenopathy. VESSELS: Unremarkable. GI TRACT: No bowel dilation or evidence of obstruction. Appendix is well identified and normal in caliber. BONES AND SOFT TISSUES: No acute bony abnormalities. Degenerative disc changes in the lumbosacral spine, worse at L4-L5. Stable small fat containing umbilical hernia. IMPRESSION: 1. punctate nonobstructing calculus at the right UVJ, resulting in minimal hydronephrosis and minimal perinephric stranding. 2. 3 mm nonobstructing calculus in the superior to mid aspect of the right kidney. 3. No other renal or ureteral calculi. No left hydronephrosis or obstruction. 4. Diffuse hepatic steatosis. Mayur Weber M.D. Dictated by: Mayur Weber M.D. on 07/06/2017 at 17:50 Electronically approved by: Mayur Weber M.D. on 2016 at 17:50 Dictated By: MAYUR WEBER MD 49 Transcribed By: DONI on 1749 COPY TO: DOROTA BYRD NP CT ABDOMEN/PELVIS [place] [address] Patient Name: ALANNA LAKHANI MR #: [id number] : 1965 Age/Sex: 52/M Req #: [id number] [facility] Physician: Ordered by: ENOCH DRAKE MD Report #: [id number] Location: ER Room/Bed: Procedure: [id number] CT/CT ABDOMEN/PELVIS WO Exam Date: 03/13/17 Exam Time: 752 REPORT STATUS: Signed PROCEDURE: CT ABDOMEN AND PELVIS WITHOUT CONTRAST TECHNIQUE: The abdomen and pelvis were scanned utilizing a multidetector helical scanner from the diaphragm to the lesser trochanter after the oral administration of water. No IV contrast was administered per protocol. Coronal and sagittal multiplanar reformations were obtained. COMPARISON: [facility], CT, CT ABDOMEN/ PELVIS WO, 04/13/2016, 21:01. INDICATIONS: RIGHT LOWER QUADRANT PAIN, RENAL CALCULUS FINDINGS: ABSENCE OF INTRAVENOUS CONTRAST DECREASES SENSITIVITY FOR DETECTION OF FOCAL LESIONS AND VASCULAR PATHOLOGY. LOWER THORAX: Unremarkable. HEPATOBILIARY: Diffuse hepatic steatosis. No focal hepatic lesions. No biliary ductal dilation. Gallbladder is unremarkable. SPLEEN: No splenomegaly. PANCREAS: No focal masses or ductal dilatation. ADRENALS: No adrenal nodules. KIDNEYS/URETERS: 4 mm calculus in the distal right ureter proximal to the UVJ results in minimal hydronephrosis (series 3, image 157). Punctate, nonobstructing calculus in the superior to mid right kidney (coronal image 78). No other renal or ureteral calculi. No left hydronephrosis or obstruction. 2.0 cm fluid density mostly exophytic cystic lesion with 5 mm linear than wall calcification (series 3, image 98 and sagittal image 102) . No other renal contour abnormalities. PELVIC ORGANS/BLADDER: Bladder and prostate are unremarkable. PERITONEUM / RETROPERITONEUM: No free air or fluid. LYMPH NODES: No lymphadenopathy. VESSELS: Unremarkable. GI TRACT: No bowel dilation or evidence of obstruction. Appendix is identified, and normal in caliber. BONES AND SOFT TISSUES: Mild degenerative disc changes in the lower thoracic and lumbosacral spine, predominantly at L4-L5. Soft tissues are grossly unremarkable.. IMPRESSION: 1. 4 mm calculus in the distal right ureter proximal to the UVJ results in minimal hydronephrosis. 2. Punctate nonobstructing calculus in the superior to mid right kidney. 3. Minimally complicated 2.0 cm cystic lesion in the inferior pole of the left kidney. 4. Hepatic steatosis. 5. Preliminary report provided by Dr. Weber March 13, 2017 at 0830 hr. Mayur Weber M.D. Dictated by: Mayur Weber M.D. on 03/15/2017 at 17:14 Electronically approved by: Mayur Weber M.D. on 03/15/2017 at 17:14 Dictated By: MAYUR WEBER MD 13 Transcribed By: DONI on 03/15/171713 COPY TO: ENOCH DRAKE MD
[2017-10-05 20:00] LABS: BASOPHILS % 0.3 % (0.0-1.0); EOSINOPHILS # (AUTO) 0.3 (0.0-0.4); EOSINOPHILS % 2.4 % (0.0-6.0); HEMATOCRIT 39.9 % (38.2-49.6); HEMOGLOBIN 12.7 g/dL (14.0-18.0); LYMPHOCYTES # (AUTO) 2.7 (1.0-3.2); LYMPHOCYTES % 21.9 % (18.0-39.1); MEAN CORPUSCULAR HEMOGLOBIN 30.2 pg (28-32); MEAN CORPUSCULAR HGB CONC 31.8 g/dL (31-35); MEAN CORPUSCULAR VOLUME 94.8 fL (81-99); MONOCYTES # (AUTO) 0.9 (0.2-0.8); MONOCYTES % 7.4 % (4.4-11.3); NEUTROPHILS # (AUTO) 8.3 (2.1-6.9); NEUTROPHILS % 67.5 % (38.7-80.0); PLATELET COUNT 423 x10e3/uL (140-360); RED BLOOD COUNT 4.21 x10e6/uL (4.3-5.7); RED CELL DISTRIBUTION WIDTH 13.3 % (11.7-14.4)
--- NOTE | 2017-10-05 20:01 | Diagnostic Imaging Report ---
EXAMINATION: Head CT without contrast. HISTORY:Headache. COMPARISON:CT brain from 08/04/2017. TECHNIQUE: Multidetector axial images were obtained from the foramen magnum to the vertex without contrast. The images were reconstructed using brain and bone algorithms. Thin section brain images were reformatted into coronal and sagittal planes. Intravenous contrast: None IMAGE QUALITY: Acceptable. FINDINGS: Skull/scalp: Unchanged nonspecific focal right occipital thickened soft tissue may represent scar. No acute abnormality. Parenchyma: No abnormal density. No acute hemorrhage, mass or acute major vascular territorial infarct. Arteries: No density suggestive of thrombosis. Dural sinuses: No abnormal density suggestive of thrombosis. Ventricles: No hydrocephalus or displacement. Extra-axial spaces: No abnormal density. Brain volume: Normal for age. Craniocervical junction: No mass, Chiari malformation, or basilar invagination. Sella: No mass. Paranasal/mastoid sinuses: Near complete opacification of right frontal sinus. IMPRESSION: No intracranial abnormality. Mucosal inflammatory changes with an air- fluid level in right frontal sinus. Signed by: Dr. Jennifer Gracia M.D. on 10/05/2017 7:57 PM
[2017-10-05 20:07] LABS: INR 1.15; PROTHROMBIN TIME 13.8 seconds (11.9-14.5)
[2017-10-05 20:08] LABS: PARTIAL THROMBOPLASTIN TIME 30.4 seconds (23.8-35.5)
[2017-10-05 20:16] LABS: ALANINE AMINOTRANSFERASE 23 IU/L (0-55); ALBUMIN 3.4 g/dL (3.5-5.0); ALBUMIN/GLOBULIN RATIO 0.8 (0.8-2.0); ALKALINE PHOSPHATASE 71 IU/L (40-150); ANION GAP 13.9 mmol/L (8-16); BLOOD UREA NITROGEN 15 mg/dL (7-26); BUN/CREATININE RATIO 14 (6-25); CALCIUM 9.5 mg/dL (8.4-10.2); CARBON DIOXIDE 26 mmol/L (22-29); CHLORIDE 105 mmol/L (98-107); CREATINE KINASE 110 IU/L (30-200); CREATININE, SERUM 1.07 mg/dL (0.72-1.25); EST GLOMERULAR FILTRATION RATE > 60 ML/MIN (60-); GLUCOSE 90 mg/dL (74-118); POTASSIUM 3.9 mmol/L (3.5-5.1); SODIUM 141 mmol/L (136-145)
--- NOTE | 2017-10-05 20:16 | Diagnostic Imaging Report ---
EXAMINATION: CHEST 2 VIEWS 10/05/2017 7:09 PM COMPARISON: 08/04/2017 INDICATION: Chest pain DISCUSSION: LINES: None. LUNGS: The lungs are well inflated and clear. No pneumonia or pulmonary edema. PLEURA: No pleural effusion or pneumothorax. HEART AND MEDIASTINUM: The cardiomediastinal silhouette is unremarkable. BONES AND SOFT TISSUES: No acute osseous lesion. The soft tissues are normal. IMPRESSION: No acute cardiopulmonary disease. Davie Gardner MD Signed by: Dr. Davie Gardner M.D. on 10/05/2017 8:13 PM
[2017-10-05 20:53] LABS: BILIRUBIN,URINE NEGATIVE (NEGATIVE); CLARITY,URINE CLEAR (CLEAR); COLOR,URINE YELLOW (YELLOW); KETONES,URINE NEGATIVE (NEGATIVE); LEUKOCYTE ESTERASE ,URINE NEGATIVE (NEGATIVE); NITRITE,URINE NEGATIVE (NEGATIVE); PROTEIN,URINE DIPSTICK NEGATIVE (NEGATIVE); URINE UROBILINOGEN 0.2 mg/dL (0.2 - 1)
[2017-10-05 21:07] LABS: EPITHELIAL CELLS,URINE RARE /LPF
[2017-10-05 21:48] VITALS: BP 137/62
== END 2017-10-05 22:00 | disposition home or self-care (01) ==
LOC: ER 18:52
DX: R07.89 Other chest pain (principal); Z86.711 Personal history of pulmonary embolism
CPT/HCPCS: 36415; 70450; 71046; 80053; 81001; 82550; 82553; 84484; 85025; 85379; 85610; 85730; 93005; 99283

== ENCOUNTER 2017-10-18 21:21 | Emergency (ER) | payer OTHER ==
[~2017-10-18] VITALS: Ht 167.6 cm; Wt 117.9 kg
--- OUTSIDE RECORDS SUMMARY | 2017-10-18 21:23 | XMS REPORT | Continuity of Care Document ---
Author Author [facility] Organization [facility] Address [address] [place] [address] Phone Unavailable Care Team Providers Care Double Bass Player Name Role Phone YINKA IBRAHIM MD PCP Insurance Providers Guarantor Kory White Address [address] [place] [address] Email [email or web address] Payer Aetna Pos Policy Number [id number] Subscriber's Name Kory White Relationship 18 Self / Same As Patient Group Number [id number] Group Name [employer] Effective Date 97 Advance Directives Directive Response Recorded Date/Time Does the patient have an advance directive? No 08/05/17 1:30am If yes, is advance directive on file with [facility]? No 02/06/17 11:20am If not on file with [facility] will patient provide a copy? No 10/05/17 8:47pm Do you have a Directive to Physician? No 10/05/17 8:47pm Do you have a Medical Power of Embedded Systems Designer? No 10/05/17 8:47pm Do you have an out of hospital Do Not Resuscitate Order? No 10/05/17 8:47pm Do you have any special needs we should be aware of? No 10/05/17 8:47pm Do you have a support person here with you today? Yes 10/05/17 8:47pm Did patient receive Notice of Privacy Practices? Yes 10/05/17 8:47pm Did patient receive patient rights and responsibilities? Yes 10/05/17 8:47pm Problems Medical Problem Onset Date Status Chest pain Unknown Impacted foreign body in esophagus Unknown Pulmonary emboli Unknown Vertigo Unknown Acute Medications Current Home Medications Medication Dose Units Route Directions Days Qty Instructions Start Date Eliquis 10 Mg Oral Twice A Day patient dose to change to 5mg BID on 08/08/17 Past Home Medications Medication Directions Ordered Status Ondansetron (Zofran Odt) 4 Mg Tab.rapdis, 4 Mg Every 6 Hours Discontinued Pantoprazole Sodium (Protonix) 40 Mg Tablet.dr, 40 Mg Oral Daily Discontinued Tamsulosin Hcl (Flomax*) 0.4 Mg Cap, 0.4 Mg Oral Daily Discontinued Tramadol Hcl (Ultram) 50 Mg Tablet, 50 Mg Oral Every 6 Hours Discontinued Social History Social History Problem Response Recorded Date/Time Onset Date Status Hx Psychiatric Problems No 08/05/2017 1:30am Not Applicable Not Applicable Hx Eating Disorder No 08/05/2017 1:30am Not Applicable Not Applicable Hx Substance Use Disorder No 08/05/2017 1:30am Not Applicable Not Applicable Hx Depression No 08/05/2017 1:30am Not Applicable Not Applicable Hx Alcohol Use No 08/05/2017 1:30am Not Applicable Not Applicable Hx Substance Use Treatment No 08/05/2017 1:30am Not Applicable Not Applicable Hx Physical Abuse No 08/05/2017 1:30am Not Applicable Not Applicable Hospital Discharge Instructions No hospital discharge instruction information available. Plan of Care Discharge Date 10/05/17 10:00pm Disposition HOME, SELF-CARE Condition at Discharge Stable Instructions/Education Provided Chest Pain - Chest Wall Forms Provided Work/School Excuse Prescriptions See Medication Section Additional Instructions/Education FOLLOW UP WITH YOUR DOCTOR TOMORROW FOLLOW UP WITH DR. DELANEY TOMORROW Functional Status No functional status information available. Allergies, Adverse Reactions, Alerts No known allergies. Immunizations No immunization information available. Vital Signs Acute Vital Signs Vital Response Date/Time Temperature (Fahrenheit) 98.8 degrees F (97.6 - 99.5) 10/05/2017 9:48pm Pulse Pulse Rate (adult) 77 bpm (60 - 90) 10/05/2017 9:48pm Respiratory Rate 18 bpm (12 - 24) 10/05/2017 9:48pm Blood Pressure 137/62 mm Hg 10/05/2017 9:48pm Height 5 ft 6 in 10/05/2017 7:03pm Weight 246 lb 10/05/2017 7:03pm Body Mass Index 39.7 kg/m^2 10/05/2017 7:03pm Results Laboratory Results Test Name Result Units Flags Reference Collection Date/Time Result Date/ Time Comments Urine Mucus FEW H RARE 08/04/2017 7:30pm 08/04/2017 8:14pm Triglycerides Level 113 MG/DL 0-149 08/05/2017 3:50am 08/05/2017 4: 19am Cholesterol Level 172 MD/DL 0-199 08/05/2017 3:50am 08/05/2017 4:19am Less than 200 mg/dL Low Risk 201 - 239 mg/dL Borderline Risk 240 mg/dl and greater High Risk LDL Cholesterol 108 MG/DL 60-130 08/05/2017 3:50am 08/05/2017 4:19am HDL Cholesterol 41 MG/DL 40-60 08/05/2017 3:50am 08/05/2017 4:19am Cholesterol/HDL Ratio 4.2 3.9-4.7 08/05/2017 3:50am 08/05/2017 4: 19am B-Type Natriuretic Peptide 12.3 pg/mL 0-100 08/04/2017 6:59pm 2017 8:25pm White Blood Count 12.36 x10e3/uL H 4.8-10.8 10/05/2017 7:09pm 2017 8:02pm Red Blood Count 4.21 x10e6/uL L 4.3-5.7 10/05/2017 7:09pm 10/05/2017 8: 02pm Hemoglobin 12.7 g/dL L 14.0-18.0 10/05/2017 7:09pm 10/05/2017 8:02pm Hematocrit 39.9 % 38.2-49.6 10/05/2017 7:09pm 10/05/2017 8:02pm Mean Corpuscular Volume 94.8 fL 81-99 10/05/2017 7:09pm 10/05/2017 8: 02pm Mean Corpuscular Hemoglobin 30.2 pg 28-32 10/05/2017 7:09pm 10/05/2017 8:02pm Mean Corpuscular Hemoglobin Concent 31.8 g/dL 31-35 10/05/2017 7:09pm 10/05/2017 8:02pm Red Cell Distribution Width 13.3 % 11.7-14.4 10/05/2017 7:09pm 2017 8:02pm Platelet Count 423 x10e3/uL H 140-360 10/05/2017 7:09pm 10/05/2017 8: 02pm Neutrophils (%) (Auto) 67.5 % 38.7-80.0 10/05/2017 7:09pm 10/05/2017 8: 02pm Lymphocytes (%) (Auto) 21.9 % 18.0-39.1 10/05/2017 7:09pm 10/05/2017 8: 02pm Monocytes (%) (Auto) 7.4 % 4.4-11.3 10/05/2017 7:09pm 10/05/2017 8: 02pm Eosinophils (%) (Auto) 2.4 % 0.0-6.0 10/05/2017 7:09pm 10/05/2017 8: 02pm Basophils (%) (Auto) 0.3 % 0.0-1.0 10/05/2017 7:09pm 10/05/2017 8:02pm IM GRANULOCYTES % 0.5 % 0.0-1.0 10/05/2017 7:09pm 10/05/2017 8:02pm Neutrophils # (Auto) 8.3 H 2.1-6.9 10/05/2017 7:09pm 10/05/2017 8: 02pm Lymphocytes # (Auto) 2.7 1.0-3.2 10/05/2017 7:09pm 10/05/2017 8:02pm Monocytes # (Auto) 0.9 H 0.2-0.8 10/05/2017 7:09pm 10/05/2017 8:02pm Eosinophils # (Auto) 0.3 0.0-0.4 10/05/2017 7:09pm 10/05/2017 8:02pm Basophils # (Auto) 0.0 0.0-0.1 10/05/2017 7:09pm 10/05/2017 8:02pm Absolute Immature Granulocyte (auto 0.06 x10e3/uL 0-0.1 10/05/2017 7: 09pm 10/05/2017 8:02pm Prothrombin Time 13.8 seconds 11.9-14.5 10/05/2017 7:09pm 10/05/2017 8: 08pm Prothromb Time International Ratio 1.15 10/05/2017 7:09pm 2017 8:08pm Oral Anticoagulant Therapy INR Values: 1. Low Intensity Therapy 1.5 - 2.0 2. Moderate Intensity Therapy 2.0 - 3.0 3. High Intensity Therapy(1) 2.5 - 3.5 4. High Intensity Therapy(2) 3.0 - 4.0 5. Panic Value INR > 5.0 Activated Partial Thromboplast Time 30.4 seconds 23.8-35.5 10/05/2017 7: 09pm 10/05/2017 8:08pm D-Dimer Quantitative (PE/DVT) 0.21 ug/mLFEU 0.00-0.45 10/05/2017 7:09pm 10/05/2017 8:20pm Urine Color YELLOW YELLOW 10/05/2017 7:07pm 10/05/2017 8:56pm Urine Clarity CLEAR CLEAR 10/05/2017 7:07pm 10/05/2017 8:56pm Urine Specific [place] 1.020 1.010-1.025 10/05/2017 7:07pm 2017 8:56pm Urine pH 5 5 - 7 10/05/2017 7:07pm 10/05/2017 8:56pm Urine Leukocyte Esterase NEGATIVE NEGATIVE 10/05/2017 7:07pm 2017 8:56pm Urine Nitrite NEGATIVE NEGATIVE 10/05/2017 7:07pm 10/05/2017 8:56pm Urine Protein NEGATIVE NEGATIVE 10/05/2017 7:07pm 10/05/2017 8:56pm Urine Glucose (UA) NEGATIVE NEGATIVE 10/05/2017 7:07pm 10/05/2017 8: 56pm Urine Ketones NEGATIVE NEGATIVE 10/05/2017 7:07pm 10/05/2017 8:56pm Urine Urobilinogen 0.2 mg/dL 0.2 - 1 10/05/2017 7:07pm 10/05/2017 8: 56pm Urine Bilirubin NEGATIVE NEGATIVE 10/05/2017 7:07pm 10/05/2017 8: 56pm Urine Blood TRACE H NEGATIVE 10/05/2017 7:07pm 10/05/2017 8:56pm Urine WBC NONE /HPF 0-5 10/05/2017 7:07pm 10/05/2017 9:08pm Urine RBC NONE /HPF 0-5 10/05/2017 7:07pm 10/05/2017 9:08pm Urine Bacteria NONE /HPF NONE 10/05/2017 7:07pm 10/05/2017 9:08pm Urine Epithelial Cells RARE /LPF NONE 10/05/2017 7:07pm 10/05/2017 9: 08pm Sodium Level 141 mmol/L 136-145 10/05/2017 7:09pm 10/05/2017 8:20pm Potassium Level 3.9 mmol/L 3.5-5.1 10/05/2017 7:09pm 10/05/2017 8:20pm Chloride Level 105 mmol/L 98-107 10/05/2017 7:09pm 10/05/2017 8:20pm Carbon Dioxide Level 26 mmol/L -10/05/2017 7:09pm 10/05/2017 8: 20pm Anion Gap 13.9 mmol/L 8-10/05/2017 7:09pm 10/05/2017 8:20pm Blood Urea Nitrogen 15 mg/dL 7-10/05/2017 7:09pm 10/05/2017 8:20pm Creatinine 1.07 mg/dL 0.72-1.25 10/05/2017 7:09pm 10/05/2017 8:20pm BUN/Creatinine Ratio 14 6-25 10/05/2017 7:09pm 10/05/2017 8:20pm Estimat Glomerular Filtration Rate > 60 ML/MIN 60- 10/05/2017 7:09pm 8:20pm Ranges were taken from the National Kidney Disease Education Program and the National Kid[employer] Foundation literature. Reference ranges: 60 or greater: Normal 16-59 (for 3 consecutive months): Chronic kidney disease 15 or less: Kidney failure Glucose Level 90 mg/dL 74-118 10/05/2017 7:09pm 10/05/2017 8:20pm Calcium Level 9.5 mg/dL 8.4-10.2 10/05/2017 7:09pm 10/05/2017 8:20pm Total Bilirubin 0.3 mg/dL 0.2-1.2 10/05/2017 7:09pm 10/05/2017 8:20pm Aspartate Amino Transf (AST/SGOT) 15 IU/L 5-34 10/05/2017 7:09pm 2017 8:20pm Alanine Aminotransferase (ALT/SGPT) 23 IU/L 0-55 10/05/2017 7:09pm 8:20pm Total Protein 7.5 g/dL 6.5-8.1 10/05/2017 7:09pm 10/05/2017 8:20pm Albumin 3.4 g/dL L 3.5-5.0 10/05/2017 7:09pm 10/05/2017 8:20pm Globulin 4.1 g/dL H 2.3-3.5 10/05/2017 7:09pm 10/05/2017 8:20pm Albumin/Globulin Ratio 0.8 0.8-2.0 10/05/2017 7:09pm 10/05/2017 8: 20pm Alkaline Phosphatase 71 IU/L 40-150 10/05/2017 7:09pm 10/05/2017 8: 20pm Creatine Kinase 110 IU/L 30-200 10/05/2017 7:09pm 10/05/2017 8:20pm Creatine Kinase MB 1.40 ng/mL 0-5.0 10/05/2017 7:09pm 10/05/2017 8: 30pm Troponin I 0.003 ng/mL 0-0.300 10/05/2017 7:09pm 10/05/2017 8:30pm Procedures Procedure Status Date Provider(s) TTE W/DOPPLER COMPLETE Completed 08/04/17 KASHIF DELANEY MD Computed tomography of chest with contrast Active 02/06/[address] of abdomen and pelvis without contrast Active 03/13/[address] of abdomen and pelvis without contrast Active 07/06/17 DOROTA BYRD NP Computed tomography of chest with contrast Active 07/30/17 JENA YOO MD X-ray of chest, single view Active 08/04/17 ROXIE GAO MD Computed tomography of brain without radiopaque contrast Active 08/04/17 ROXIE GAO MD X-ray of chest, two views Active 08/04/17 ROXIE GAO MD X-ray of chest, two views Active 10/05/17 ROXIE GAO MD Computed tomography of brain without radiopaque contrast Active 10/05/17 ROXIE GAO MD Encounters Encounter Location Arrival/Admit Date Discharge/Depart Date Attending Provider Departed Emergency Room [facility] [place] 10/05/17 6:52pm 10:00pm ROXIE GAO MD Registered Clinic [facility] 09/21/17 1:23pm JOCELYNE DIXON MD Discharged Inpatient (obs) [facility] 08/04/17 11:33pm 10:32am HEATH MCGRATH MD Departed Emergency Room [facility] 07/30/17 5:55am 2:23pm ENOCH REARDON MD Departed Emergency Room [facility] 07/06/17 2:29pm 8:34pm YUKO DEL ANGEL MD Departed Emergency Room [facility] 03/13/17 7:09am 11:22am ENOCH REARDON MD Discharged Inpatient (obs) [facility] 02/06/17 5:26am 3:32pm HEATH MCGRATH MD
[2017-10-18] MEDS ORDERED: KETOROLAC TROMETHAMINE 30 MG/ML VIAL IV STA (21:30)
[2017-10-18] MEDS ORDERED: LEVOFLOXACIN 750MG/D5W 150ML 150 ML IV ONE (22:00)
[2017-10-18] MEDS ORDERED: MORPHINE SULFATE 2 MG/ML SYR IV STA (23:08)
[2017-10-18 23:25] VITALS: BP 134/87
== END 2017-10-18 23:25 | disposition home or self-care (01) ==
LOC: FSED 21:21
DX: N23 Unspecified renal colic (principal); N30.91 Cystitis, unspecified with hematuria; Z86.718 Personal history of other venous thrombosis and embolism
CPT/HCPCS: 74176; 80053; 81003; 85025; 87086; 96365; 96374; 96375; 99284; J1885; J2270

== ENCOUNTER 2017-12-13 06:42 | Emergency (ER) | payer OTHER ==
[~2017-12-13] VITALS: Ht 167.6 cm; Wt 117.9 kg
[2017-12-13] MEDS ORDERED: SODIUM CHLORIDE 0.9% 1000ML 1,000 ML IV STA (07:13)
[2017-12-13] MEDS ORDERED: FENTANYL CITRATE/PF 100MCG/2 ML INJ IV ONE (07:15)
[2017-12-13] MEDS ORDERED: ONDANSETRON HCL INJ 2 MG/ML VIAL IV STA (07:20)
[2017-12-13] MEDS ORDERED: KETOROLAC TROMETHAMINE 30 MG/ML VIAL IV STA (07:20)
[2017-12-13 08:41] VITALS: BP 130/77
== END 2017-12-13 08:50 | disposition home or self-care (01) ==
LOC: FSED 06:42
DX: R10.9 Unspecified abdominal pain (principal); R31.9 Hematuria, unspecified; N23 Unspecified renal colic; N13.30 Unspecified hydronephrosis; I10 Essential (primary) hypertension
CPT/HCPCS: 74176; 80048; 81003; 85025; 99284; J1885; J2405; J7030

== ENCOUNTER 2018-02-01 09:27 | Emergency (ER) | payer OTHER ==
[~2018-02-01] VITALS: Ht 167.6 cm; Wt 117.9 kg
[2018-02-01 11:02] LABS: CLARITY,URINE TURBID (CLEAR); COLOR,URINE RED (YELLOW); KETONES,URINE 1+ (NEGATIVE); LEUKOCYTE ESTERASE ,URINE 2+ (NEGATIVE); NITRITE,URINE POSITIVE (NEGATIVE); PROTEIN,URINE DIPSTICK 3+ (NEGATIVE); URINE UROBILINOGEN 4 mg/dL (0.2 - 1)
[2018-02-01 11:03] LABS: BILIRUBIN,URINE 2+ (NEGATIVE)
[2018-02-01] MEDS ORDERED: MORPHINE SULFATE 2 MG/ML SYR IV STA (11:15)
[2018-02-01] MEDS ORDERED: SODIUM CHLORIDE 0.9% 1000ML 1,000 ML IV SCH (11:15)
[2018-02-01] MEDS ORDERED: ONDANSETRON HCL INJ 2 MG/ML VIAL IV STA (11:15)
[2018-02-01] MEDS ORDERED: KETOROLAC TROMETHAMINE 30 MG/ML VIAL IV STA (11:15)
[2018-02-01 11:16] LABS: RBC,URINE >50 /HPF (0-5)
[2018-02-01 11:18] LABS: BACTERIA,URINE MODERATE /HPF; EPITHELIAL CELLS,URINE RARE /LPF
[2018-02-01 11:39] LABS: BASOPHILS % 0.4 % (0.0-1.0); EOSINOPHILS # (AUTO) 0.2 (0.0-0.4); EOSINOPHILS % 2.2 % (0.0-6.0); HEMOGLOBIN 13.2 g/dL (14.0-18.0); LYMPHOCYTES # (AUTO) 1.8 (1.0-3.2); LYMPHOCYTES % 18.8 % (18.0-39.1); MEAN CORPUSCULAR HEMOGLOBIN 28.9 pg (28-32); MEAN CORPUSCULAR HGB CONC 32.2 g/dL (31-35); MEAN CORPUSCULAR VOLUME 89.7 fL (81-99); MONOCYTES # (AUTO) 0.7 (0.2-0.8); MONOCYTES % 6.7 % (4.4-11.3); NEUTROPHILS # (AUTO) 6.9 (2.1-6.9); NEUTROPHILS % 71.6 % (38.7-80.0); PLATELET COUNT 374 x10e3/uL (140-360); RED BLOOD COUNT 4.57 x10e6/uL (4.3-5.7); RED CELL DISTRIBUTION WIDTH 14.8 % (11.7-14.4)
[2018-02-01 11:44] LABS: INR 1.22; PROTHROMBIN TIME 14.5 seconds (11.9-14.5)
--- NOTE | 2018-02-01 11:44 | Diagnostic Imaging Report ---
PROCEDURE: CT ABDOMEN AND PELVIS WITHOUT CONTRAST TECHNIQUE: The abdomen and pelvis were scanned utilizing a multidetector helical scanner from the diaphragm to the lesser trochanter without IV or oral contrast material per renal stone protocol. Coronal and sagittal multiplanar reformations were obtained. DLP: 782.52 mGy-cm COMPARISON: None. INDICATIONS: BLOOD IN URINE FINDINGS: ABSENCE OF INTRAVENOUS CONTRAST DECREASES SENSITIVITY FOR DETECTION OF FOCAL LESIONS AND VASCULAR PATHOLOGY. LOWER THORAX: Normal. HEPATOBILIARY: No focal hepatic lesions. No biliary ductal dilatation. SPLEEN: No splenomegaly. PANCREAS: No focal masses or ductal dilatation. ADRENALS: No adrenal nodules. KIDNEYS/URETERS: There is mild left caliectasis with slightly dilated left ureter extending to near the UVJ where there is a tiny distal ureteral stone (axial series, image 154 and coronal series, image 77). Lower pole right renal hypodensity measuring 2.3 cm likely represents a cyst but difficult to ascertain without IV contrast. An ultrasound of the kidneys would be of value especially in a patient with hematuria. PELVIC ORGANS/BLADDER: Unremarkable. PERITONEUM / RETROPERITONEUM: No free air or fluid. LYMPH NODES: No lymphadenopathy. VESSELS: Unremarkable. GI TRACT: No distention or wall thickening. Scattered diverticula within the colon. BONES AND SOFT TISSUES: Degenerative changes of the spine with significant disc space narrowing at L4-L5 with lesser disc space narrowing at L3-L4 and L5-S1. Posterior osteophytes at these levels are also noted. IMPRESSION: 1. Mild left caliectasis and dilated ureter caused by a tiny distal left ureteral stone. 2. Hypodensity in the inferior aspect of the right kidney likely is a cyst but indeterminate. Tong Foster D.O. Dictated by: Tong Foster D.O. on 02/01/2018 at 11:48 Electronically approved by: Tong Foster D.O. on 02/01/2018 at 11:48
[2018-02-01 11:45] LABS: PARTIAL THROMBOPLASTIN TIME 29.6 seconds (23.8-35.5)
[2018-02-01 11:52] LABS: ALANINE AMINOTRANSFERASE 29 IU/L (0-55); ALBUMIN 3.7 g/dL (3.5-5.0); ALKALINE PHOSPHATASE 76 IU/L (40-150); ANION GAP 11.9 mmol/L (8-16); BLOOD UREA NITROGEN 16 mg/dL (7-26); BUN/CREATININE RATIO 15 (6-25); CALCIUM 9.7 mg/dL (8.4-10.2); CARBON DIOXIDE 27 mmol/L (22-29); CHLORIDE 107 mmol/L (98-107); EST GLOMERULAR FILTRATION RATE > 60 ML/MIN (60-); GLUCOSE 122 mg/dL (74-118); POTASSIUM 3.9 mmol/L (3.5-5.1); SODIUM 142 mmol/L (136-145)
[2018-02-01] MEDS ORDERED: CEFTRIAXONE SOD 1 GM VIAL IV ONE (12:15)
== END 2018-02-01 14:21 | disposition home or self-care (01) ==
LOC: ER 09:27
DX: R10.32 Left lower quadrant pain (principal); R31.9 Hematuria, unspecified; N20.1 Calculus of ureter
CPT/HCPCS: 36415; 74176; 80053; 81001; 85025; 85610; 85730; 87086; 99284; J0696; J1885; J2270; J2405; J7030

== ENCOUNTER 2018-02-03 22:58 | Emergency (ER) | payer OTHER ==
[~2018-02-03] VITALS: Ht 167.6 cm; Wt 122.5 kg
[2018-02-03] MEDS ORDERED: KETOROLAC TROMETHAMINE 30 MG/ML VIAL IV STA (23:21)
[2018-02-03] MEDS ORDERED: MORPHINE SULFATE 5 MG/ML VIAL IV ONE (23:30)
[2018-02-03] MEDS ORDERED: SODIUM CHLORIDE 0.9% 1000ML 1,000 ML IV SCH (23:30)
[2018-02-03] MEDS ORDERED: ONDANSETRON HCL INJ 2 MG/ML VIAL IV STA (23:39)
[2018-02-04 02:09] VITALS: BP 138/74
== END 2018-02-04 01:45 | disposition home or self-care (01) ==
LOC: FSED 22:58
DX: R10.32 Left lower quadrant pain (principal); R11.2 Nausea with vomiting, unspecified; N30.90 Cystitis, unspecified without hematuria; N20.0 Calculus of kidney
CPT/HCPCS: 99283; J1885; J2270; J2405

== ENCOUNTER → 2018-03-02 | Outpatient (CLI) | payer OTHER ==
--- NOTE | 2018-03-02 09:39 | Diagnostic Imaging Report ---
PROCEDURE:X-RAY ABDOMEN - KUB COMPARISON:CT of the abdomen and pelvis dated 02/01/2018 INDICATIONS:HISTORY OF RENAL CALCULUS FINDINGS: There are no dilated loops of bowel to suggest obstruction. There are no masses or abnormal calcifications. Tiny stone seen in the distal left ureter on the prior CT not readily apparent on this plain film study. There is no evidence of free air. Pelvic vascular calcification noted. No acute osseous abnormalities are present. Degenerative spurring of the lumbar spine. CONCLUSION: No acute abdominal abnormality. Tong Foster D.O. Dictated by: Tong Foster D.O. on 03/02/2018 at 9:24 Electronically approved by: Tong Foster D.O. on 03/02/2018 at 9:24
== END ==
LOC: RAD 08:21
PROVIDERS: ATTEND Urology
DX: N20.0 Calculus of kidney (principal)
CPT/HCPCS: 74018

== ENCOUNTER 2018-06-19 04:43 | Emergency (ER) | payer OTHER ==
[~2018-06-19] VITALS: Ht 167.6 cm; Wt 122.5 kg
[2018-06-19] MEDS ORDERED: KETOROLAC TROMETHAMINE 30 MG/ML VIAL IV STA (05:07)
[2018-06-19] MEDS ORDERED: SODIUM CHLORIDE 0.9% 1000 ML BAG IV STA (05:20)
--- NOTE | 2018-06-19 06:11 | Diagnostic Imaging Report ---
EXAM: CT ABD/PEL WO CONTRAST-HOPD DATE: 06/19/2018 12:00 AM INDICATION: Kidney stones, lower back pain COMPARISON: 02/01/2018 TECHNIQUE: The abdomen and pelvis were scanned using a multidetector helical scanner. Coronal and sagittal reformations were obtained. CT low dose techniques were utilized, as applicable. IV Contrast: 0 ml Isovue 300/370 FINDINGS: Lack of IV contrast decreases sensitivity in evaluating abdominal and pelvic organs. LOWER THORAX: No consolidations LIVER/BILIARY: Hepatic steatosis. No masses. No ductal dilatation. GALLBLADDER: Unremarkable SPLEEN: Unremarkable PANCREAS: Unremarkable ADRENALS: No nodules KIDNEYS: Bilateral renal cystic lesions are again noted, containing milk of calcium on the left. Punctate 2 mm nonobstructing right interpolar renal calculus. Left pelvocaliectasis and proximal ureterectasis, similar to prior. No left renal or distal obstructing stone is seen. GI TRACT: No wall thickening or evidence of obstruction. Diverticulosis. Normal appendix. VESSELS: Poorly assessed without IV contrast PERITONEUM/RETROPERITONEUM: No free air or fluid LYMPH NODES: No lymphadenopathy REPRODUCTIVE ORGANS/BLADDER: Bladder is decompressed, poorly assessed. Suggestion of punctate density near the left UVJ on image 164, favored to be artifactual related to quantum mottle. SOFT TISSUES: Unremarkable BONES: Degenerative changes, worse of the lumbar spine. IMPRESSION: Stable trace dilation of the left renal collecting system with interval passage of previous stone. No new obstructive uropathy. Signed by: Dr Thalia Phillips MD on 06/19/2018 6:07 AM
== END 2018-06-19 06:39 | disposition home or self-care (01) ==
LOC: ER 04:43 → FSED 06:39
DX: N13.2 Hydronephrosis with renal and ureteral calculous obstruction (principal); E87.6 Hypokalemia; Z86.711 Personal history of pulmonary embolism; Z86.718 Personal history of other venous thrombosis and embolism; Z79.02 Long term (current) use of antithrombotics/antiplatelets
CPT/HCPCS: 74176; 80048; 80076; 81003; 85025; 99283; J1885; J7030

== ENCOUNTER 2020-01-13 18:38 | Emergency (ER) | payer OTHER ==
[~2020-01-13] VITALS: Ht 167.6 cm; Wt 123.8 kg
[~2020-01-13 18:38] MED LIST changes: +KETOROLAC TROME10 MG PEG
[2020-01-13] MEDS ORDERED: ACETAMINOPHEN 325 MG TAB PO ONE (19:00)
[2020-01-13] MEDS ORDERED: DEXAMETHASONE SOD PHOS 10 MG/1 ML VIAL IM ONE (19:00)
[2020-01-13] MEDS ORDERED: THERAFLU COLD1 EAC4 PO (19:13)
[2020-01-13] MEDS ORDERED: AZITHROMYCIN250 MG PO (19:13)
[2020-01-13] MEDS ORDERED: DEXAMETHASONE6 MG PO (19:13)
--- NOTE | 2020-01-13 19:15 | Emergency Department Note ---
History of Present Illnes History of Present Illness Chief Complaint: COVID PUI History of Present Illness This is a 54 year old male obese, JOSE DANIEL c/o generla malaise for 3 days, cough sob but his SOB has been there for 10 years . It got worse today s he is here. he works for [employer] Arrival Mode: Car Onset (how long ago): day(s) Radiation: Reports non-radiation Severity: moderate Duration (how long): day(s) Progression: worsening Relieving factors: none Treatments prior to arrival: none Past Medical/Family History Physician Review I have reviewed the patient's past medical and family history. Any updates have been documented here. Past Medical History Recent Fever: No Clinical Suspicion of Infectio: No New/Unexplained Change in Ment: No Past Medical History: None Other Medical History: DVT Past Surgical History: Knee Replacement, Back Surgery Other Surgery: 2 back surgerys LEFT knee surgery R ARM Social History Smoking Cessation: Never Smoker Alcohol Use: Social Any Illegal Drug Use: No TB Exposure/Symptoms: No Physically hurt or threatened: No Family History Family history of heart diseas: No Other Last Tetanus: UNK Any Pre-Existing Lines (PICC,: No Review of Systems Review of Systems Constitutional: Reports chills, Reports fever, Reports malaise EENTM: Reports no symptoms Cardiovascular: Reports no symptoms Respiratory: Reports chest congestion, Reports cough Gastrointestinal: Reports no symptoms Genitourinary: Reports no symptoms Musculoskeletal: Reports no symptoms Integumentary: Reports no symptoms Neurological: Reports no symptoms Psychological: Reports no symptoms Endocrine: Reports no symptoms Hematological/Lymphatic: Reports no symptoms Physical Exam Related Data Allergies: Coded Allergies: No Known Allergies (Unverified , 07/06/17) Vital signs reviewed: Yes Physical Exam CONSTITUTIONAL Constitutional: Present well-developed, Present well-nourished, Present obese HENT HENT: Present normocephalic, Present atraumatic, Present oropharynx clear/moist, Present nose normal HENT L/R: Present left ext ear normal, Present right ext ear normal EYES Eyes: Reports PERRL, Reports conjunctivae normal NECK Neck: Present ROM normal PULMONARY Pulmonary: Present effort normal, Present breath sounds normal CARDIOVASCULAR Cardiovascular: Present regular rhythm, Present heart sounds normal, Present capillary refill normal, Present normal rate GASTROINTESTINAL Abdominal: Present soft, Present nontender, Present bowel sounds normal GENITOURINARY Genitourinary: Present exam deferred SKIN Skin: Present warm, Present dry MUSCULOSKELETAL Musculoskeletal: Present ROM normal NEUROLOGICAL Neurological: Present alert, Present oriented x 3, Present no gross motor or sensory deficits PSYCHOLOGICAL Psychological: Present mood/affect normal, Present judgement normal Results Laboratory Laboratory comments covid 19 pending Assessment & Plan Medical Decision Making MDM viral illness, most likely COVID Assessment & Plan Final Impression: (1) COVID-19 virus infection (2) Viral infection Depart Disposition: HOME, SELF-detention Meds Active Scripts Azithromycin (Z-CRISTIANO) 250 Mg Tablet, 1 PKG PO DIRECTED, #1 PKG 0 Refills Prov:BEAN HUMPHREY MD 01/13/20 Dexamethasone (DEXAMETHASONE) 6 Mg Tablet, 1 TAB PO DAILY, #7 Prov:BEAN HUMPHREY MD 01/13/20 Diphenhydra/Phenyleph/Acetamin (THERAFLU COLD AND COUGH POWDER) 1 Each Powd.pack, 1 PACKET PO Q6H PRN for fever and or pain, #12 Prov:BEAN HUMPHREY MD 01/13/20 Tamsulosin Hcl* (FLOMAX*) 0.4 Mg Cap, 0.4 MG PO DAILY, #6 CAP Prov:CHRIS BRADLEY MD 10/03/19 Ketorolac Tromethamine (TORADOL) 10 Mg Tablet, 10 MG PEG TID for pain, #2 Prov:CHRIS BRADLEY MD 10/03/19 Reported Medications [Eliquis] No Conflict Check, 10 MG PO BID patient dose to change to 5mg BID on 08/08/17 08/04/17 BEAN HUMPHREY MD Jan 13, 2020 19:15
== END 2020-01-13 19:30 | disposition home or self-care (01) ==
LOC: FSED 19:00
DX: U07.1 COVID-19 (principal); B34.9 Viral infection, unspecified; R53.81 Other malaise
CPT/HCPCS: 87635; 99283; J1100

== ENCOUNTER 2020-01-16 10:25 | Emergency (ER) | payer OTHER ==
[~2020-01-16] VITALS: Ht 167.6 cm; Wt 123.8 kg
[~2020-01-16 10:25] MED LIST changes: +AZITHROMYCIN250 MG PO; +DEXAMETHASONE6 MG PO; +THERAFLU COLD1 EAC4 PO
[2020-01-16 10:57] VITALS: BP 131/78
--- NOTE | 2020-01-16 11:02 | Emergency Department Note ---
History of Present Illnes History of Present Illness Chief Complaint: Respiratory History of Present Illness This is a 54 year old male arrived to the ED with complaints of cough, state he feels fine his insisted he go to the ED. patient states he would like to go home and feels fine. Patient states he got tested for Covid 19 and is awaiting the results. 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 Any updates have been documented here. Past Medical History Recent Fever: No Clinical Suspicion of Infectio: No New/Unexplained Change in Ment: No Past Medical History: DVT/PE Other Medical History: pneumonia intubation Past Surgical History: Back Surgery Other Surgery: Right ACL Social History Smoking Cessation: Never Smoker Counseling Performed: No Alcohol Use: None Any Illegal Drug Use: No Physically hurt or threatened: No Other Last Tetanus: UNK Any Pre-Existing Lines (PICC,: No Review of Systems Review of Systems Constitutional: Reports no symptoms, Reports fever EENTM: Reports no symptoms Cardiovascular: Reports as per HPI Respiratory: Reports as per HPI, Reports cough Gastrointestinal: Reports no symptoms Genitourinary: Reports no symptoms Musculoskeletal: Reports no symptoms Integumentary: Reports no symptoms Neurological: Reports no symptoms Psychological: Reports no symptoms Endocrine: Reports no symptoms Hematological/Lymphatic: Reports no symptoms Physical Exam Related Data Allergies: Coded Allergies: No Known Allergies (Unverified , 07/06/17) Triage Vital Signs Vital Signs Date Time Temp Pulse Resp B/P (MAP) Pulse Ox O2 Delivery O2 Flow Rate FiO2 01/16/20 10:30 99.3 88 16 141/78 98 Room Air Vital signs reviewed: Yes Physical Exam CONSTITUTIONAL Constitutional: Present well-developed, Present well-nourished HENT HENT: Present normocephalic, Present atraumatic, Present oropharynx clear /moist, Present nose normal HENT L/R: Present left ext ear normal, Present right ext ear normal EYES Eyes: Reports PERRL, Reports conjunctivae normal NECK Neck: Present ROM normal PULMONARY Pulmonary: Present effort normal, Present breath sounds normal CARDIOVASCULAR Cardiovascular: Present regular rhythm, Present heart sounds normal, Present capillary refill normal, Present normal rate GASTROINTESTINAL Abdominal: Present soft, Present nontender, Present bowel sounds normal GENITOURINARY Genitourinary: Present exam deferred SKIN Skin: Present warm, Present dry MUSCULOSKELETAL Musculoskeletal: Present ROM normal NEUROLOGICAL Neurological: Present alert, Present oriented x 3, Present no gross motor or sensory deficits PSYCHOLOGICAL Psychological: Present mood/affect normal, Present judgement normal Results Laboratory Laboratory comments Patient is covid + Imaging Imaging results reviewed: Yes Impressions IMPRESSION: Mild left basilar patchy opacities may represent pneumonia in the proper clinical setting. Signed by: Dawn Lizarraga MD on 01/16/2020 12:56 PM Assessment & Plan Medical Decision Making MDM 54-year-old well-appearing male arrives to the ED after being tested positive for Covid 19. Patient well-appearing, no evidence of hypoxia or tachypnea noted. Patient's chest x-ray reviewed and is unremarkable the emergency department. Patient stable for discharge home. Patient's oxygen saturation remained 99% even on exertion, no evidence of tachypnea or dyspnea noted in the ED. Spoke present length about the importance of sleeping on his stomach and rotating from side to side. Z-Onel given, signs and symptoms for return discussed. In the light of the Covid pandemic, disaster medicine care was given. Assessment & Plan Final Impression: (1) COVID-19 virus infection Depart Disposition: HOME, SELF-CARE Last Vital Signs Date Time Temp Pulse Resp B/P (MAP) Pulse Ox O2 Delivery O2 Flow Rate FiO2 01/16/20 10:34 99.3 84 16 141/78 98 01/16/20 10:30 Room Air Home Meds Active Scripts Azithromycin (Z-ONEL) 250 Mg Tablet, 1 PKG PO DIRECTED, #1 PKG 0 Refills Prov:SETH GORDILLO, DO 01/16/20 Azithromycin (Z-ONEL) 250 Mg Tablet, 1 PKG PO DIRECTED, #1 PKG 0 Refills Prov:BEAN HUPMHREY MD 01/13/20 Dexamethasone (DEXAMETHASONE) 6 Mg Tablet, 1 TAB PO DAILY, #7 Prov:BEAN HUMPHREY MD 01/13/20 Diphenhydra/Phenyleph/Acetamin (THERAFLU COLD AND COUGH POWDER) 1 Each Powd.pack, 1 PACKET PO Q6H PRN for fever and or pain, #12 Prov:BEAN HUMPHREY MD 01/13/20 Tamsulosin Hcl* (FLOMAX*) 0.4 Mg Cap, 0.4 MG PO DAILY, #6 CAP Prov:CHRIS BRADLEY MD 10/03/19 Ketorolac Tromethamine (TORADOL) 10 Mg Tablet, 10 MG PEG TID for pain, #2 Prov:CHRIS BRADLEY MD 10/03/19 Reported Medications [Eliquis] No Conflict Check, 10 MG PO BID patient dose to change to 5mg BID on 08/08/17 08/04/17 SETH GORDILLO DO Jan 16, 2020 11:02
[2020-01-16] MEDS ORDERED: AZITHROMYCIN250 MG PO (11:45)
--- NOTE | 2020-01-16 12:59 | Diagnostic Imaging Report ---
EXAMINATION: CHEST SINGLE (PORTABLE) INDICATION: Hypoxia COMPARISON: Chest radiograph 10/05/2017 FINDINGS: LINES/TUBES:None LUNGS:The lungs are moderately inflated. Mild left basilar patchy opacities. PLEURA:No pleural effusion or pneumothorax. MEDIASTINUM:The cardiomediastinal silhouette appears normal in size and shape. BONES/SOFT TISSUES:No acute osseous injury. ABDOMEN:No free air under the diaphragm. IMPRESSION: Mild left basilar patchy opacities may represent pneumonia in the proper clinical setting. Signed by: Dawn Lizarraga MD on 01/16/2020 12:56 PM
== END 2020-01-16 12:41 | disposition home or self-care (01) ==
LOC: ER 10:51
DX: U07.1 COVID-19 (principal); R50.9 Fever, unspecified; R05 Cough; Z86.718 Personal history of other venous thrombosis and embolism
CPT/HCPCS: 71045; 99283

== ENCOUNTER 2020-04-14 21:42 | Emergency (ER) | payer OTHER ==
[~2020-04-14] VITALS: Ht 167.6 cm; Wt 124.3 kg
[2020-04-14] MEDS ORDERED: ONDANSETRON HCL INJ 2MG/ML 2ML 2 MG/ML VIAL ONE (22:00)
[2020-04-14] MEDS ORDERED: KETOROLAC TROMETHAMINE 30 MG/ML VIAL ONE (22:00)
[2020-04-14] MEDS ORDERED: MORPHINE SULFATE INJ 4 MG/ML INJ 1ML ONE (22:01)
[2020-04-14] MEDS ORDERED: SODIUM CHLORIDE 0.9% 1000ML 1,000 ML ONE (22:01)
[2020-04-14] MEDS ORDERED: KETOROLAC TROMETHAMINE 30 MG/ML VIAL IV STA (22:11)
[2020-04-14] MEDS ORDERED: ONDANSETRON HCL INJ 2MG/ML 2ML 2 MG/ML VIAL IV STA (22:11)
[2020-04-14] MEDS ORDERED: SODIUM CHLORIDE 0.9% 1000ML 1,000 ML IV STA (22:11)
[2020-04-14] MEDS ORDERED: MORPHINE SULFATE INJ 4 MG/ML INJ 1ML IV STA (22:11)
== END 2020-04-15 00:15 | disposition home or self-care (01) ==
LOC: FSED 21:46
DX: R10.32 Left lower quadrant pain (principal); N20.0 Calculus of kidney; N28.9 Disorder of kidney and ureter, unspecified; Z86.718 Personal history of other venous thrombosis and embolism
CPT/HCPCS: 74176; 80053; 81003; 85025; 96374; 96375; 96376; 99283; J1885; J2270; J2405; J7030

== ENCOUNTER 2020-06-10 05:47 | Emergency (ER) | payer OTHER ==
[~2020-06-10] VITALS: Ht 167.6 cm; Wt 122.5 kg
[2020-06-10] MEDS ORDERED: KETOROLAC TROMETHAMINE 30 MG/ML VIAL IV STA (06:02)
[2020-06-10] MEDS ORDERED: SODIUM CHLORIDE 0.9% 1000ML 1,000 ML IV ONE (06:15)
[2020-06-10] MEDS ORDERED: MORPHINE SULFATE INJ 4 MG/ML INJ 1ML IV ONE (06:19)
[2020-06-10] MEDS ORDERED: KETOROLAC TROMETHAMINE 30 MG/ML VIAL ONE (06:20)
[2020-06-10] MEDS ORDERED: SODIUM CHLORIDE 0.9% 1000ML 1,000 ML ONE (06:20)
[2020-06-10] MEDS ORDERED: MORPHINE SULFATE INJ 4 MG/ML INJ 1ML ONE (06:25)
[2020-06-10] MEDS ORDERED: MORPHINE SULFATE 5 MG/ML VIAL IV ONE (06:30)
[2020-06-10] MEDS ORDERED: FLOMAX0.4 MG PO (06:43)
[2020-06-10] MEDS ORDERED: KETOROLAC TROME10 MG PO (06:43)
== END 2020-06-10 07:29 | disposition home or self-care (01) ==
LOC: FSED 07:10
DX: R10.9 Unspecified abdominal pain (principal); N13.30 Unspecified hydronephrosis; K57.90 Diverticulosis of intestine, part unspecified, without perforation or abscess without bleeding; K76.0 Fatty (change of) liver, not elsewhere classified; Z86.718 Personal history of other venous thrombosis and embolism
CPT/HCPCS: 74176; 80048; 80076; 81003; 85025; 96374; 96376; 99284; J1885; J2270; J7030

== ENCOUNTER 2022-05-18 13:29 | Emergency (ER) | payer BC, OTHER ==
[~2022-05-18] VITALS: Ht 167.6 cm; Wt 122.5 kg
[~2022-05-18 13:29] MED LIST changes: +KETOROLAC TROME10 MG PO
[2022-05-18] MEDS ORDERED: ONDANSETRON HCL INJ 2MG/ML 2ML 2 MG/ML VIAL IV STA ×2 (13:40→16:32)
[2022-05-18] MEDS ORDERED: KETOROLAC TROMETHAMINE 30 MG/ML VIAL IV STA (13:40)
[2022-05-18] MEDS ORDERED: SODIUM CHLORIDE 0.9% 1000ML 1,000 ML IV ONE (13:45)
[2022-05-18] MEDS ORDERED: SODIUM CHLORIDE 0.9% 1000ML 1,000 ML ONE (13:58)
[2022-05-18] MEDS ORDERED: ONDANSETRON HCL INJ 2MG/ML 2ML 2 MG/ML VIAL ONE ×2 (13:58→16:46)
[2022-05-18] MEDS ORDERED: KETOROLAC TROMETHAMINE 30 MG/ML VIAL ONE (13:58)
[2022-05-18] MEDS ORDERED: KETOROLAC TROME10 MG PO (16:39)
[2022-05-18] MEDS ORDERED: FLOMAX0.4 MG PO (16:40)
[2022-05-18] MEDS ORDERED: HYDROCODON-ACE1 EAC9 PO (16:41)
[2022-05-18] MEDS ORDERED: ONDANSETRON ODT4 MG PO (16:41)
[2022-05-18] MEDS ORDERED: CEFUROXIME500 MG PO (16:43)
[2022-05-18] MEDS ORDERED: TAMSULOSIN HCL 0.4 MG CAP PO SCH (16:45)
[2022-05-18] MEDS ORDERED: Morphine 2mg Syringe 2 MG/ML SYR IV ONE (16:45)
[2022-05-18] MEDS ORDERED: Morphine 4mg INJECTION 4 MG/ML INJ IV ONE (16:45)
[2022-05-18] MEDS ORDERED: TAMSULOSIN HCL 0.4 MG CAP ONE (16:46)
[2022-05-18] MEDS ORDERED: Morphine 4mg INJECTION 4 MG/ML INJ ONE (16:46)
== END 2022-05-18 16:49 | disposition home or self-care (01) ==
LOC: FSED 13:37
DX: R31.9 Hematuria, unspecified (principal); N13.2 Hydronephrosis with renal and ureteral calculous obstruction; R30.0 Dysuria; R10.32 Left lower quadrant pain; K57.90 Diverticulosis of intestine, part unspecified, without perforation or abscess without bleeding; K76.0 Fatty (change of) liver, not elsewhere classified; Z79.01 Long term (current) use of anticoagulants; Z86.718 Personal history of other venous thrombosis and embolism
CPT/HCPCS: 74176; 80048; 80076; 81003; 85025; 99284; J1885; J2270; J2405; J7030

== ENCOUNTER → 2022-12-19 | Outpatient (CLI) | payer OTHER ==
[~2022-12-19] MED LIST changes: +ACETAMINOPHEN-1 EAC4 PO; +CEFUROXIME500 MG PO; +HYDROCODON-ACE1 EAC9 PO; +ONDANSETRON ODT4 MG PO
== END ==
LOC: US 11:04
PROVIDERS: ATTEND Nurse Practitioner Adult Health
DX: E04.9 Nontoxic goiter, unspecified (principal)
CPT/HCPCS: 10005; 88172; 88173; 88300

== ENCOUNTER 2023-01-01 19:19 | Emergency (ER) | payer OTHER ==
[~2023-01-01] VITALS: Ht 167.6 cm; Wt 122.5 kg
[2023-01-01] MEDS ORDERED: Morphine 4mg INJECTION 4 MG/ML INJ IM STA (19:42)
[2023-01-01] MEDS ORDERED: FENTANYL CITRATE/PF 100MCG/2 ML INJ IJ ONE (20:45)
[2023-01-01 20:58] VITALS: O2SAT 96
[2023-01-01] MEDS ORDERED: KETOROLAC TROME10 MG PO (21:40)
[2023-01-01] MEDS ORDERED: ONDANSETRON ODT4 MG PO (21:40)
[2023-01-01] MEDS ORDERED: HYDROCODON-ACE1 EAC9 PO (21:40)
[2023-01-01] MEDS ORDERED: KETOROLAC TROMETHAMINE 60 MG/2 ML VIAL IM ONE (21:45)
== END 2023-01-01 20:35 | disposition home or self-care (01) ==
LOC: ER 19:26
DX: M79.605 Pain in left leg (principal); E66.9 Obesity, unspecified; Z86.718 Personal history of other venous thrombosis and embolism
CPT/HCPCS: 93971; 99283; J1885; J2270; J3010

== ENCOUNTER → 2023-01-13 | Outpatient (CLI) | payer OTHER | END | disposition home or self-care (01) | LOC: US 08:37 | PROVIDERS: ATTEND Nurse Practitioner Adult Health | DX: E04.1 Nontoxic single thyroid nodule (principal) | CPT/HCPCS: 76536 ==

== ENCOUNTER 2024-11-11 19:30 | Emergency (ER) | payer OTHER ==
[~2024-11-11] VITALS: Ht 167.6 cm; Wt 104.3 kg
[2024-11-11] MEDS: KETOROLAC TROMETHAMINE 30 MG/ML VIAL IV STA (20:43)
[2024-11-11] MEDS ORDERED: FLOMAX0.4 MG PO (22:14)
[2024-11-11 22:26] VITALS: PULSE 75; RESP 18; TEMP 98.5
[2024-11-11 22:34] VITALS: BP 122/67; PULSE 75; RESP 18; TEMP 98.5; O2SAT 98
== END 2024-11-11 22:28 | disposition home or self-care (01) ==
LOC: FSED 19:56
DX: R31.9 Hematuria, unspecified (principal); N13.2 Hydronephrosis with renal and ureteral calculous obstruction; R10.32 Left lower quadrant pain; M54.50 Low back pain, unspecified; E66.9 Obesity, unspecified; Z86.718 Personal history of other venous thrombosis and embolism
CPT/HCPCS: 74176; 80053; 81003; 85025; 99284; J1885